=== PATIENT | female | born 1955 | race Asian ===

== ENCOUNTER → 2024-11-29 | Emergency (ER) | payer MEDICARE ==
[~2024-11-29] VITALS: Ht 149.9 cm; Wt 49.5 kg
[2024-11-29 18:16] VITALS: BP 122/91; PULSE 92; RESP 18; TEMP 97.9; O2SAT 97
== END | disposition still patient (30) ==
LOC: EMS 18:50
DX: S00.83XA Contusion of other part of head, initial encounter (principal); F17.210 Nicotine dependence, cigarettes, uncomplicated; V43.52XA Car driver injured in collision with other type car in traffic accident, initial encounter; Y93.89 Activity, other specified; Y92.410 Unspecified street and highway as the place of occurrence of the external cause; Y99.8 Other external cause status
CPT/HCPCS: 99282; Z7502